=== PATIENT | female | born 1980 | race Asian ===

== ENCOUNTER 2017-02-04 08:42 | Emergency (ER) | payer BC ==
[~2017-02-04] VITALS: Ht 157.5 cm; Wt 59.0 kg
[~2017-02-04 08:42] MED LIST: FLUT0.05 NAS; HYDROCOD/HOM1 ML PO; MEDROL DOSEPAK4 MG OR; Z-PAK PO
[2017-02-04 09:51] VITALS: BP 114/72; TEMP 99
== END 2017-02-04 09:52 | disposition home or self-care (01) ==
LOC: ED 08:42
DX: R68.84 Jaw pain (principal); B99.8 Other infectious disease
CPT/HCPCS: 99282

== ENCOUNTER 2019-10-09 14:18 | Outpatient (CLI) | payer BC | END 2019-10-09 19:37 | disposition home or self-care (01) | LOC: MAMMO 14:18 | DX: Z12.31 Encounter for screening mammogram for malignant neoplasm of breast (principal) ==

== ENCOUNTER 2021-09-14 01:49 | Emergency (ER) | payer OTHER ==
[~2021-09-14] VITALS: Ht 157.5 cm; Wt 63.5 kg
[2021-09-14 03:15] VITALS: BP 141/77; TEMP 98.5
== END 2021-09-14 03:20 | disposition home or self-care (01) ==
LOC: ED 01:49
DX: J01.80 Other acute sinusitis (principal)
CPT/HCPCS: 96372; 99282; J1885

== ENCOUNTER 2021-12-19 21:09 | Emergency (ER) | payer OTHER ==
[~2021-12-19] VITALS: Ht 157.5 cm; Wt 65.8 kg
[2021-12-19 21:51] LABS: PLATELET COUNT 205 K/uL (152-353)
[2021-12-19 22:09] LABS: POTASSIUM 3.6 mmol/L (3.6-5.2)
[2021-12-19 23:00] VITALS: BP 142/92; TEMP 98.1
== END 2021-12-19 23:05 | disposition home or self-care (01) ==
LOC: ED 21:09
PROVIDERS: Emergency Medicine Emergency Medical Services
DX: R09.1 Pleurisy (principal)
CPT/HCPCS: 36415; 80053; 83735; 84484; 85027; 85379; 85610; 93005; 96360; 96374; 96375; 99284; J1885; J2930